=== PATIENT | female | born 1975 ===

== ENCOUNTER 2023-12-28 15:24 | Inpatient (IN) | payer OTHER ==
[2023-12-28] MEDS ORDERED: Ketorolac Tromethamine 30 MG (1 mL) VIAL ONE (16:49)
[2023-12-28] MEDS ORDERED: diphenhydrAMINE 50 MG/ML VIAL ONE (16:49)
[2023-12-28] MEDS ORDERED: Metoclopramide HCl 10 MG (2 mL) VIAL ONE (16:50)
[2023-12-28 17:04] LABS: #Basophils 0.05 10x3/uL (0.0-0.2); #Eosinphils Less than 0.03 10x3/uL (0.0-0.7); %Basophils 0.2 % (0.0-1.0); %Lymphocytes 5.3 % (21.0-51.0); %Monocytes 5.9 % (0.0-10.0); %Neutrophils 88.1 % (42.0-75.0); Hemoglobin 12.2 g/dL (12.0-16.0); Mean Corpuscular HGB CONC 32.1 g/dL (32.0-36.0); Mean Corpuscular Hemoglobin 28.6 pg (27.0-31.0); Mean Platelet Volume 10.9 fL (7.4-10.4); Platelet Count 267 10x3/uL (130-400); Red Blood Cell (RBC) Count 4.27 mill/uL (4.20-5.40)
[2023-12-28 17:34] LABS: ALT (SGPT) 17 U/L (8-55); AST (SGOT) 21 U/L (5-34); Albumin 3.4 g/dL (3.5-5.0); Alkaline Phosphatase 55 U/L (40-110); Anion Gap 14 mmol/L (10-20); BUN (Urea Nitrogen) 9 mg/dL (7.0-18.7); Bilirubin, Total 0.4 mg/dL (0.2-1.2); Calc. Creatinine Clearance 0 mL/min (70-130); Calcium 8.7 mg/dL (7.8-10.44); Carbon Dioxide 19 mmol/L (22-29); Chloride 105 mmol/L (98-107); Estimated GFR 106; Globulin 3.8 g/dL (2.4-3.5); Glucose 124 mg/dL (70-105); Protein, Total 7.2 g/dL (6.0-8.3); Sodium 134 mmol/L (136-145)
[2023-12-28] MEDS ORDERED: traMADol HCl 50 MG TAB PO PRN (17:43)
[2023-12-28 19:32] LABS: Lactic Acid 1.6 mmol/L (0.5-2.2)
[2023-12-28] MEDS: Sodium Chloride 0.9% 1,000 ML IV SCH (20:37)
[2023-12-28 21:12] VITALS: BMI 50.9
[2023-12-28] MEDS: Acetaminophen 325 MG TAB PO SCH (21:25)
[2023-12-28] MEDS ORDERED: ALPRAZolam 1 MG TAB PO SCH (22:00)
[2023-12-28] MEDS: QUEtiapine 100 MG TAB PO SCH (22:48)
[2023-12-28] MEDS: traZODone HCl 50 MG TAB PO SCH (22:48)
[2023-12-28] MEDS: ALPRAZolam 0.5 MG TAB PO SCH (23:49)
[2023-12-29 04:20] VITALS: BP 119/64; TEMP 97.4
[2023-12-29 04:45] LABS: #Basophils 0.03 10x3/uL (0.0-0.2); %Basophils 0.2 % (0.0-1.0); %Eosinophils 0.8 % (0.0-10.0); %Lymphocytes 9.1 % (21.0-51.0); %Monocytes 5.4 % (0.0-10.0); Hematocrit 31.6 % (36.0-47.0); Hemoglobin 10.3 g/dL (12.0-16.0); Mean Corpuscular HGB CONC 32.6 g/dL (32.0-36.0); Mean Corpuscular Hemoglobin 28.4 pg (27.0-31.0); Mean Corpuscular Volume 87.1 fL (78.0-98.0); Mean Platelet Volume 11.1 fL (7.4-10.4); Platelet Count 203 10x3/uL (130-400); RBC Distribution Width 15.2 % (11.5-14.5); Red Blood Cell (RBC) Count 3.63 mill/uL (4.20-5.40)
[2023-12-29] MEDS: cefTRIAXone\\ROCEPHIN 2 GM in Sodium Chloride 0.9% 100 ML IVPB SCH (05:00)
[2023-12-29 05:13] LABS: Anion Gap 10 mmol/L (10-20); BUN (Urea Nitrogen) 10 mg/dL (7.0-18.7); Calc. Creatinine Clearance 219 mL/min (70-130); Carbon Dioxide 19 mmol/L (22-29); Chloride 109 mmol/L (98-107); Estimated GFR 112; Glucose 106 mg/dL (70-105); Potassium 3.4 mmol/L (3.5-5.1); Sodium 135 mmol/L (136-145)
[2023-12-29] MEDS ORDERED: Azithromycin 500 MG VIAL ONE (06:02)
[2023-12-29] MEDS: Azithromycin 500 MG in Sodium Chloride 0.9% 250 ML 250 ML IVPB SCH (06:08)
[2023-12-29] MEDS ORDERED: Enoxaparin 40 MG (0.4 mL) SYRINGE SC SCH (09:00)
[2023-12-29 17:01] LABS: Campy jejuni + coli by PCR Negative (Negative); STEC Shiga Toxin 1+2 Negative (Negative); Salmonella spp. by PCR Negative (Negative); Shigella spp + EIEC by PCR Negative (Negative)
[2023-12-29] MEDS ORDERED: traZODone HCl 50 MG TAB PO SCH (21:00)
[2023-12-29] MEDS ORDERED: ALPRAZolam 0.5 MG TAB PO SCH (21:00)
== END 2023-12-29 07:01 | disposition left against medical advice (07) | DRG 871 ==
LOC: ERS 15:24 → 2NO 17:46
PROVIDERS: ADMIT Internal Medicine; ATTEND Internal Medicine
DX: A41.9 Sepsis, unspecified organism (principal); J18.9 Pneumonia, unspecified organism; J96.01 Acute respiratory failure with hypoxia; E87.20 Acidosis, unspecified; A08.4 Viral intestinal infection, unspecified; I95.9 Hypotension, unspecified; F41.8 Other specified anxiety disorders; Z85.43 Personal history of malignant neoplasm of ovary; Z85.41 Personal history of malignant neoplasm of cervix uteri; Z92.21 Personal history of antineoplastic chemotherapy
CPT/HCPCS: 36415; 80048; 80053; 83605; 84145; 85025; 86141; 87505; J0456; J0696; J1200; J1885; J2765; J3490; J7050